=== PATIENT | female | born 1935 | race Asian ===

== ENCOUNTER 2017-03-02 08:09 | Emergency (ER) | payer MEDICARE, OTHER ==
[~2017-03-02] VITALS: Ht 147.3 cm; Wt 48.0 kg
[2017-03-02] MEDS ORDERED: MECLIZINE CHEWABLE 25 MG TAB ONE (08:58)
[2017-03-02] MEDS ORDERED: ONDANSETRON ODT 4 MG ONE (08:59)
[2017-03-02] MEDS ORDERED: MECLIZINE CHEWABLE 25 MG TAB PO ONE (09:30)
[2017-03-02] MEDS ORDERED: ONDANSETRON ODT 4 MG PO ONE (09:30)
[2017-03-02 10:43] VITALS: BP 150/77
== END 2017-03-02 11:27 | disposition home or self-care (01) ==
LOC: ED 09:47
DX: H81.392 Other peripheral vertigo, left ear (principal); H81.12 Benign paroxysmal vertigo, left ear; I45.81 Long QT syndrome; I10 Essential (primary) hypertension
CPT/HCPCS: 70450; 93005; 99284; Q0162